=== PATIENT | female | born 1995 | race Hispanic/Latino ===

== ENCOUNTER 2018-09-14 01:52 | Emergency (ER) | payer BC ==
[2018-09-14 02:16] VITALS: TEMP 98.2; O2SAT 98
--- NOTE | 2018-09-14 02:37 | ED PDOC ---
HPI: Psych/Substance Abuse Time Seen by Provider: 09/14/18 02:14 Chief Complaint (Nursing): Chest Pain Chief Complaint (Provider): anxiety History Per: Patient History/Exam Limitations: no limitations Onset/Duration Of Symptoms: Hrs (2) Current Symptoms Are (Timing): Still Present Modifying Factor(s): Marijuana Additional Complaint(s): 22 y/o female brought in by EMS for evaluation of anxiety x 2 hours. Patient states she has been under a lot of stress at school with finals, states tonight before bed she smoked marijuana and then began to develop chest tightness and felt her heart racing and felt very anxious. Denies fever, headache, dizziness, extremity numbness/weakness, vision changes, shortness of breath, leg pain/swelling, recent travel. Past Medical History Reviewed: Historical Data, Nursing Documentation, Vital Signs Vital Signs: Last Vital Signs Temp 98.2 F 09/14/18 02:13 Pulse 128 H 09/14/18 02:13 Resp 18 09/14/18 02:13 BP 132/76 09/14/18 02:13 Pulse Ox 98 09/14/18 02:13 - Medical History PMH: No Chronic Diseases - Surgical History Surgical History: No Surg Hx - Family History Family History: States: No Known Family Hx - Living Arrangements Living Arrangements: Alone - Social History Alcohol: Social Drugs: Cannabis - Allergies Allergies/Adverse Reactions: Allergies Allergy/AdvReac Type Severity Reaction Status Date / Time No Known Allergies Allergy Verified 09/14/18 02:13 Review of Systems ROS Statement: Except As Marked, All Systems Reviewed And Found Negative Cardiovascular: Positive for: Palpitations Psych: Positive for: Anxiety Physical Exam - Reviewed Nursing Documentation Reviewed: Yes Vital Signs Reviewed: Yes - Physical Exam Appears: Positive for: Well, Non-toxic, Uncomfortable (anxious) Head Exam: Positive for: ATRAUMATIC, NORMAL INSPECTION, NORMOCEPHALIC Skin: Positive for: Normal Color Eye Exam: Positive for: Normal appearance ENT: Positive for: Normal ENT Inspection Cardiovascular/Chest: Positive for: Regular Rate, Rhythm Respiratory: Positive for: Normal Breath Sounds Gastrointestinal/Abdominal: Positive for: Normal Exam Back: Positive for: Normal Inspection Extremity: Positive for: Normal ROM Neurologic/Psych: Positive for: Alert, Oriented (x3) - ECG ECG: Positive for: Viewed By Me (reviewed by ED attending) ECG Rhythm: Positive for: Sinus Tachycardia O2 Sat by Pulse Oximetry: 98 - Progress ED Course And Treament: -ekg Patient given water to drink while resting in dark room 4:45 Patient states she is feeling better. Vitals improved Patient educated on findings, discharged with instructions to follow up PMD within 2-3 days Return precautions given Disposition - Clinical Impression Clinical Impression: Cannabis use, uncomplicated, Panic attack - Patient ED Disposition Is Patient to be Admitted: No Counseled Patient/Family Regarding: Studies Performed, Diagnosis, Need For Followup - Disposition Disposition: Routine/Home Disposition Time: 04:45 Condition: IMPROVED Instructions: Panic Disorder, Marijuana Use and Addiction
[2018-09-14 05:06] VITALS: BP 125/84; PULSE 91; RESP 22
== END 2018-09-14 05:00 | disposition home or self-care (01) ==
LOC: H.ER 01:52
DX: F41.0 Panic disorder [episodic paroxysmal anxiety] (principal); F12.90 Cannabis use, unspecified, uncomplicated